=== PATIENT | female | born 1985 | race Caucasian/White ===

== ENCOUNTER 2022-06-30 08:27 | Day surgery (SDC) | payer OTHER ==
[~2022-06-30] VITALS: Ht 203.2 cm; Wt 69.1 kg
--- NOTE | ~2022-06-30 | OR ---
[facility] [address], [place] [address] Draft DATE OF OPERATION: 06/30/2022 SURGEON: Hay Vora MD PREOPERATIVE DIAGNOSES: History of rectal bleeding, occasional anal pain, family history of polyps. No family history of colon cancer. POSTOPERATIVE DIAGNOSIS: Normal-appearing colon. PROCEDURE: Total colonoscopy to cecum with biopsy of rectum. ANESTHESIA: Intravenous sedation; , fentanyl 150 mcg. INDICATIONS: A 36-year-old white woman is a patient Dr. Larsen of the [facility]. She has self described episodic rectal bleeding and occasional pain. She has no family history of colon cancer, but does have family history of polyps. She most recently has not been bleeding. She is admitted to undergo colonoscopy on that basis. She understands the risk of bleeding, infection, and perforation. FINDINGS: The prep was excellent. Complete colonoscopy was undertaken to the cecum without question. There was no evidence of polyps, diverticular formation, colitis, or cancer. Biopsies were taken of the cecum and rectum to rule out occult colitis. DESCRIPTION OF PROCEDURE: The patient was brought to the endoscopy suite and placed in the lateral decubitus position, given intravenous sedation to the point of slurred speech and nystagmus. Full cardiopulmonary monitoring was maintained. Digital rectal examination inspection showed no sign of fissure or fistula or external hemorrhoidal change. An Olympus video colonoscope was passed in the rectum and manipulated throughout the colon ultimately intubating the cecum itself. The ileocecal valve and appendiceal orifice were normal. Attempts to enter the ileocecal valve were unsuccessful. No attempts were made to do so. A biopsy was taken of the cecum that appeared normal. This was to assess for occult colitis. The scope was then withdrawn and careful inspection throughout showed no sign of polyps, diverticular formation, colitis, or cancer. PATIENT NAME: KIM RUBY OPERATIVE REPORT DATE OF : 83 REPORT #: [id number] PHYSICIAN: HAY VORA MD PCP: MARGARET LARSEN MD REPORT IS CONFIDENTIAL AND NOT TO BE RELEASED WITHOUT AUTHORIZATION [facility] [address], [place] [address] Draft Retroflexed view was normal as well without sign of hemorrhoid particularly. Careful inspection through the anal canal showed no sign of fissure or other abnormality. A biopsy was taken of the rectum. Reinspection of the anal canal with the day care assistant providing light source failed to show any sign of fissure or other particular problem. The patient was taken to the recovery room in good condition. CONCLUDING DIAGNOSIS: No evidence of lesion to account for bleeding. She may have had a fissure that has healed, particularly since she did have anal pain at one time associated with the bleeding. I would recommend high-fiber diet or fiber supplement such as Citrucel or Metamucil. If she should have recurrent rectal bleeding, she will call and we will see her promptly in the office and inspect for the underlying cause of her problem. MD SOLOMON Robbins/DAMION /[id number] cc: Dr. Larsen Copies: ~ PATIENT NAME: KIM RUBY OPERATIVE REPORT DATE OF : 83 REPORT #: [id number] PHYSICIAN: HAY VORA MD PCP: MARGARET LARSEN MD REPORT IS CONFIDENTIAL AND NOT TO BE RELEASED WITHOUT AUTHORIZATION
[~2022-06-30 08:27] MED LIST: ADVIL200 M1 PO; IBUPROFEN800 MG PO; METHYLFOLATE1 EACH PO; PERCOCET 5-3251 EACH PO
[2022-06-30] MEDS ORDERED: MULTI VITAMIN1 EACH PO (08:50)
--- NOTE | 2022-06-30 11:08 | NUR ---
06/30/22 1108 Sheets,Lidia 1101 PT ARRIVED TO PACU AND BP DECREASED, PT ROLLED TO BACK AND FLUIDS INCREASED. PT DENIES DIZZINESS AND CONCERNS. PT DENIES PAIN AND NAUSEA.
--- NOTE | 2022-07-02 15:06 | PATH ---
[facility] [address] [facility] [place], [place] [address] Signed SPECIMEN(S): A CECUM BIOPSY SPECIMEN(S): B RECTUM SPECIMEN SOURCE: A. CECUM BIOPSY B. RECTUM CLINICAL HISTORY: Rectal bleeding, family history of colon polyps. Postop: Normal. FINAL PATHOLOGIC DIAGNOSIS: A. Cecum biopsy: - Benign colonic mucosa, negative for pathologic inflammation or epithelial dysplasia. - Incidental submucosal lymphoid aggregate with reactive histologic features. B. Rectum, biopsy: - Polypoid fragments of benign colonic mucosa with slight hyperplastic features (two fragments). JVR:[facility]:C2NR MICROSCOPIC EXAMINATION: Histologic sections of all submitted blocks are examined by light microscopy. These findings, together with the gross examination, support the pathologic diagnosis. GROSS DESCRIPTION: A. The specimen, labeled and designated "Margarito, cecum biopsy," is received in formalin and consists of two jackson soft tissue fragments, ranging from 0.1-0.2 cm. Entirely submitted in (A1). B. The specimen, labeled and designated "Margarito, rectum biopsy," is received in formalin and consists of two jackson soft tissue fragments, ranging from 0.1-0.2 cm. Entirely submitted in (B1). JS (under the direct supervision of a pathologist) The Gross Description was prepared using a voice recognition system. The report was reviewed for accuracy; however, sound-alike word errors, addition and/or deletions may occur. If there is any question about this report, please contact Client Services. PERFORMING LABORATORY: The technical component was performed by [facility], [address] [place] [id number] (CLIA# [id number]). Professional interpretation was PATIENT NAME: KIM RUBY PATHOLOGY DATE OF : [birth year] REPORT #: [id number] PHYSICIAN: [facility] PCP: MARGARET LARSEN MD REPORT IS CONFIDENTIAL AND NOT TO BE RELEASED WITHOUT AUTHORIZATION [facility] [address] [place], [place] [address] Signed performed by [facility] [address] [place] [address] (CLIA#: [id number]). Diagnostician: Malcolm Fuentes MD Pathologist Electronically Signed 07/02/2022 Copies: ~ PATIENT NAME: KIM RUBY PATHOLOGY DATE OF : [birth year] REPORT #: [id number] PHYSICIAN: [facility] PCP: MARGARET LARSEN MD REPORT IS CONFIDENTIAL AND NOT TO BE RELEASED WITHOUT AUTHORIZATION
== END 2022-06-30 11:42 | disposition home or self-care (01) ==
LOC: DS 08:27 → OPS 08:27 → DS 08:31 → OPS 09:45 → DS 13:00
PROVIDERS: ATTEND Surgery
PROC: 0DBP8ZX Excision of Rectum, Via Natural or Artificial Opening Endoscopic, Diagnostic (ICD-10-PCS; 2022-06-30)
PROC: 0DBH8ZX Excision of Cecum, Via Natural or Artificial Opening Endoscopic, Diagnostic (ICD-10-PCS; principal; 2022-06-30 09:45)
DX: K62.5 Hemorrhage of anus and rectum (principal); N30.10 Interstitial cystitis (chronic) without hematuria; Z83.71 Family history of colonic polyps; Z88.0 Allergy status to penicillin; Z88.2 Allergy status to sulfonamides; Z79.899 Other long term (current) drug therapy
CPT/HCPCS: 84703; 99153; G0500; J2250; J3010; J7121